=== PATIENT | male | born 1975 | race Caucasian/White ===

== ENCOUNTER 2016-08-30 01:12 | Emergency (ER) | payer OTHER ==
--- NOTE | 2016-08-30 07:20 | ER ---
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 Denies any foreign body with grinding. Exam remarkable for nontoxic, afebrile male with good visual acuity post-exam. No foreign body with lid eversion. Funduscopic exam unremarkable, AC/PC clear to direct ophthalmoscopy. No uptake of fluorescein bilaterally. Blood pressure remained high, strongly encouraged to follow up with Dr. Graham for blood pressure treatment. Consider renovascular hypertension in light of his polycystic kidney disease. UV keratitis treated with ketoprofen 0.4% drops q.i.d. p.r.n. x3 days and gentamicin 0.3% drops q.i.d. x3 days. Follow up with Dr. Galdamez tomorrow. Magen Stroud MD/ xiomyl JOB #: [id number] CC: Magen Stroud MD, Attending Physician Kalen Graham MD, Family Physician MD Kalen Hardy MD
== END 2016-08-30 02:15 | disposition home or self-care (01) ==
LOC: ER 01:12
DX: H16.293 Other keratoconjunctivitis, bilateral (principal); I10 Essential (primary) hypertension; Z79.899 Other long term (current) drug therapy